=== PATIENT | male | born 1990 | race Caucasian/White ===

== ENCOUNTER 2019-08-01 10:26 | Emergency (ER) | payer SELFPAY ==
[~2019-08-01] VITALS: Ht 188 cm; Wt 78.0 kg
[2019-08-01 10:39] VITALS: BP 120/75
--- NOTE | 2019-08-01 10:40 | NUR ---
THIS IS A 28 YO M W/ C/O RLQ PAIN AND NAUSEA THAT STARTED THIS MORNING. PT REPORTS 2 EPISODES OF DIARRHEA. DENIES VOMITING. VSS, PT CONNECTED TO MONITORING. EDUCATED ON NEED FOR URINE SAMPLE AND PROVIDED URINAL. PT RESTING ON [place] W/ CALL LIGHT IN REACH. DR. FOUNTAIN IN ROOM FOR ED EVAL.
[2019-08-01] MEDS ORDERED: MORPHINE SULFATE 4 MG/ML, 1ML ONE (10:44)
[2019-08-01] MEDS ORDERED: ONDANSETRON 2MG/ML, 2ML ONE (10:44)
[2019-08-01] MEDS ORDERED: MORPHINE SULFATE 4 MG/ML, 1ML IVPush PRN (11:00)
[2019-08-01] MEDS ORDERED: SODIUM CHLORIDE 0.9% 1,000ML IVBOLUS ONE (11:00)
[2019-08-01] MEDS ORDERED: ONDANSETRON 2MG/ML, 2ML IVPush ONE (11:00)
[2019-08-01] MEDS ORDERED: SODIUM CHLORIDE FLUSH 10ML SYR IVF ONE (11:00)
--- NOTE | 2019-08-01 11:01 | NUR ---
PIV STARTED, LABS DRAWN. PT REFUSING IV FLUIDS AND MEDS. NOTIFIED.
[2019-08-01 11:11] LABS: BASOPHILS # (AUTO) 0.03 x10^3/uL (0-0.1); BASOPHILS % (AUTO) 1 % (0-1); EOSINOPHILS # (AUTO) 0.41 x10^3/uL (0-0.4); EOSINOPHILS % (AUTO) 7 % (1-7); LYMPHOCYTES # (AUTO) 2.27 x10^3/uL (1-3.4); LYMPHOCYTES % (AUTO) 37 % (22-44); MD NO; MEAN CORPUSCULAR HEMOGLOBIN 30.4 pg (27.5-34.5); MEAN CORPUSCULAR HGB CONC 33.5 g/dL (33.2-36.2); MEAN PLATELET VOLUME 8.5 fL (7.4-10.4); MONOCYTES # (AUTO) 0.61 x10^3/uL (0.2-0.8); MONOCYTES % (AUTO) 10 % (2-9); NEUTROPHILS # (AUTO) 2.85 x10^3/uL (1.8-6.8); NEUTROPHILS % (AUTO) 46 % (42-75); PLATELET COUNT 271 x10^3/uL (130-400); RED BLOOD COUNT 4.89 x10^6/uL (4.38-5.82)
--- NOTE | 2019-08-01 11:13 | NUR ---
PT REMINDED WE NEED A URINE SAMPLE.
[2019-08-01 11:22] LABS: ALANINE AMINOTRANSFERASE 21 U/L (12-78); ALBUMIN 3.7 g/dL (3.4-5.0); ANION GAP 4 mmol/L (5-15); CALCIUM 8.6 mg/dL (8.5-10.1); CHLORIDE 108 mmol/L (98-107); CREATININE 1.04 mg/dL (0.7-1.3)
[2019-08-01 11:24] LABS: ALKALINE PHOSPHATASE 74 U/L (45-117); TOTAL PROTEIN 7.3 g/dL (6.4-8.2)
--- NOTE | 2019-08-01 11:35 | NUR ---
URINE COLLECTED AND SENT TO LAB. PT AMBULATED TO CT.
[2019-08-01] MEDS ORDERED: OMNIPAQUE 350 MG/ML, 100ML BOTTLE ONE (11:42)
[2019-08-01 11:52] LABS: MICROSCOPIC NOT IND
[2019-08-01 11:56] LABS: CULTURE INDICATED? NO
--- NOTE | 2019-08-01 12:32 | NUR ---
Patient given discharge instructions and they have confirmed that they understand the instructions. Patient ambulatory with steady gait.
== END 2019-08-01 12:35 | disposition home or self-care (01) ==
LOC: ED 11:04
DX: R10.31 Right lower quadrant pain (principal); I88.0 Nonspecific mesenteric lymphadenitis; K20.0 Eosinophilic esophagitis
CPT/HCPCS: 36415; 74177; 80053; 81003; 85025; 99285; Q9967